=== PATIENT | female | born 1990 | race Caucasian/White ===

== ENCOUNTER 2018-11-20 17:28 | Outpatient (CLI) | payer OTHER ==
[2018-11-20 19:03] LABS: ADD MAN DIFF? NO
[2018-11-20 19:05] LABS: BASOPHILS % 0.3 % (0.0-2.0); EOSINOPHILS # 0.1 10^3/ul (0.0-0.5); EOSINOPHILS % 1.3 % (0.0-7.0); HEMATOCRIT 35.2 % (37.0-47.0); HEMOGLOBIN 12.1 g/dl (12.0-16.0); LYMPHOCYTES # 1.4 10^3/ul (0.8-2.9); MEAN CORPUSCULAR HEMOGLOBIN 31.2 pg (29.0-33.0); MEAN CORPUSCULAR HGB CONC 34.4 g/dl (32.0-37.0); MEAN CORPUSCULAR VOLUME 90.7 fl (82.0-101.0); MEAN PLATELET VOLUME 9.7 fl (7.4-10.4); MONOCYTE # 0.8 10^3/ul (0.3-0.9); MONOCYTES % 7.6 % (0.0-11.0); NEUTROPHIL # 8.1 10^3/ul (1.6-7.5); NEUTROPHILS % 76.9 % (39.0-77.0); PLATELET COUNT 243 10^3/UL (140-415); RED BLOOD COUNT 3.88 10^6/ul (4.20-5.40); RED CELL DISTRIBUTION WIDTH 13.1 % (11.5-14.5)
[2018-11-20 19:05] LABS: WHITE BLOOD COUNT 10.5 10^3/ul (4.8-10.8)
[2018-11-20 19:15] LABS: ADD UMIC NO; UR ASCORBIC ACID NEGATIVE (NEGATIVE); UR BACTERIA FEW /HPF (NONE SEEN); UR BILIRUBIN (Dip) NEGATIVE (NEGATIVE); UR BLOOD (Dip) NEGATIVE (NEGATIVE); UR CLARITY SLIGHTLY CLOUDY (CLEAR); UR COLOR YELLOW (YELLOW); UR GLUCOSE (Dip) NEGATIVE (NEGATIVE); UR KETONES (Dip) NEGATIVE (NEGATIVE); UR LEUKOCYTE ESTERASE (Dip) NEGATIVE Leu/ul (NEGATIVE); UR MUCUS FEW /HPF (NONE SEEN); UR NITRITE (Dip) NEGATIVE (NEGATIVE); UR RBC 0 /HPF (0-5); UR SPECIFIC GRAVITY (Dip) 1.018 (1.003-1.030); UR SQUAMOUS EPITHELIAL CELL FEW /HPF (FEW); UR TOTAL PROTEIN (Dip) NEGATIVE (NEGATIVE); UR UROBILINOGEN (Dip) NEGATIVE (NEGATIVE); UR WBC 2 /HPF (0-5)
[2018-11-20 19:24] LABS: ALANINE AMINOTRANSFERASE 11 IU/L (13-69); ALBUMIN 3.6 g/dl (3.3-4.9); ALBUMIN/GLOBULIN RATIO 1.02; ALKALINE PHOSPHATASE 93 IU/L (42-121); ANION GAP 8 (5-13); ASPARTATE AMINO TRANSFERASE 13 IU/L (15-46); BILIRUBIN,INDIRECT 0.4 mg/dl (0-1.1); BILIRUBIN,TOTAL 0.4 mg/dl (0.2-1.3); BLOOD UREA NITROGEN 9 mg/dl (7-20); CARBON DIOXIDE 24 mmol/L (21-31); CHLORIDE 108 mmol/L (97-110); CREATININE 0.48 mg/dl (0.44-1.00); Estimated GFR > 60 mL/min (>60); GLUCOSE 99 mg/dl (70-220); POTASSIUM 3.8 mmol/L (3.5-5.1); SODIUM 140 mmol/L (135-144); TOTAL PROTEIN 7.1 g/dl (6.1-8.1)
== END 2018-11-20 22:05 | disposition home or self-care (01) ==
LOC: OBT 17:28 → L-D 17:28 → OBT 22:05
DX: O26.853 Spotting complicating pregnancy, third trimester (principal); O13.3 Gestational [pregnancy-induced] hypertension without significant proteinuria, third trimester; Z3A.32 32 weeks gestation of pregnancy
CPT/HCPCS: 76817; 80053; 81001; 81003; 82731; 85025

== ENCOUNTER 2018-12-22 22:19 | Outpatient (CLI) | payer OTHER ==
[2018-12-22 23:26] LABS: ADD UMIC NO; UR ASCORBIC ACID NEGATIVE (NEGATIVE); UR BILIRUBIN (Dip) NEGATIVE (NEGATIVE); UR BLOOD (Dip) NEGATIVE (NEGATIVE); UR CLARITY CLEAR (CLEAR); UR COLOR YELLOW (YELLOW); UR GLUCOSE (Dip) NEGATIVE (NEGATIVE); UR KETONES (Dip) NEGATIVE (NEGATIVE); UR LEUKOCYTE ESTERASE (Dip) NEGATIVE Leu/ul (NEGATIVE); UR NITRITE (Dip) NEGATIVE (NEGATIVE); UR SPECIFIC GRAVITY (Dip) 1.014 (1.003-1.030); UR TOTAL PROTEIN (Dip) NEGATIVE (NEGATIVE); UR UROBILINOGEN (Dip) NEGATIVE (NEGATIVE)
== END 2018-12-23 00:52 | disposition home or self-care (01) ==
LOC: OBT 22:19 → L-D 22:19
DX: O47.1 False labor at or after 37 completed weeks of gestation (principal); Z3A.37 37 weeks gestation of pregnancy
CPT/HCPCS: 76815; 76818; 81003

== ENCOUNTER 2018-12-29 14:01 | Inpatient (IN) | payer OTHER ==
[2018-12-29] MEDS ORDERED: LACTATED RINGER'S 1,000 ML IV (14:43)
[2018-12-29] MEDS ORDERED: OXYTOCIN 30 UNITS/LR 500 ML IV (15:00)
[2018-12-29] MEDS ORDERED: MINERAL OIL LIGHT 10 ML VIAL TOP (15:00)
[2018-12-29] MEDS ORDERED: METHYLERGONOVINE 0.2 MG INJ IM (15:00)
[2018-12-29] MEDS ORDERED: MISOPROSTOL 200 MCG TAB PR (15:00)
[2018-12-29] MEDS ORDERED: CARBOPROST 250 MCG INJ IM (15:00)
[2018-12-29] MEDS ORDERED: BUTORPHANOL 2 MG INJ IV (15:00)
[2018-12-29 15:13] LABS: ADD MAN DIFF? NO
[2018-12-29 15:15] LABS: WHITE BLOOD COUNT 11.3 10^3/ul (4.8-10.8)
[2018-12-29 15:15] LABS: BASOPHILS % 0.2 % (0.0-2.0); EOSINOPHILS # 0.1 10^3/ul (0.0-0.5); EOSINOPHILS % 0.6 % (0.0-7.0); HEMOGLOBIN 12.8 g/dl (12.0-16.0); LYMPHOCYTES % 9.2 % (15.0-51.0); MEAN CORPUSCULAR HEMOGLOBIN 32.4 pg (29.0-33.0); MEAN CORPUSCULAR HGB CONC 36.6 g/dl (32.0-37.0); MEAN CORPUSCULAR VOLUME 88.6 fl (82.0-101.0); MEAN PLATELET VOLUME 10.5 fl (7.4-10.4); MONOCYTE # 0.5 10^3/ul (0.3-0.9); MONOCYTES % 4.8 % (0.0-11.0); NEUTROPHIL # 9.6 10^3/ul (1.6-7.5); NEUTROPHILS % 84.7 % (39.0-77.0); PLATELET COUNT 224 10^3/UL (140-415); RED BLOOD COUNT 3.95 10^6/ul (4.20-5.40); RED CELL DISTRIBUTION WIDTH 13.1 % (11.5-14.5)
[2018-12-29 15:36] LABS: INR 0.89; PROTIME 12.2 Sec (11.9-14.9)
[2018-12-29] MEDS: AMPICILLIN 2 GM/NS (PMX) 100 ML IV (15:36)
[2018-12-29 15:37] LABS: PARTIAL THROMBOPLASTIN TIME 29.6 Sec (23.0-35.0)
[2018-12-29] MEDS: LACTATED RINGER'S 1,000 ML IV (15:37)
[2018-12-29 16:17] LABS: HEPATITIS B SURFACE ANTIGEN NEGATIVE (NEGATIVE)
[2018-12-29] MEDS: OXYTOCIN 30 UNITS/LR 500 ML IV ×3 (16:37→22:38)
[2018-12-29] MEDS: AMPICILLIN 1 GM/NS (PMX) 50 ML IV (19:15)
[2018-12-29] MEDS: LIDOCAINE 1% (MPF) 30 ML INJ INJ (22:24)
[2018-12-29] MEDS: MINERAL OIL LIGHT 10 ML VIAL TOP (22:32)
[2018-12-30] MEDS: IBUPROFEN 600 MG TAB PO ×4 (00:23→17:48)
[2018-12-30] MEDS ORDERED: DIPHENHYDRAMINE 50 MG INJ IV (01:30)
[2018-12-30] MEDS ORDERED: ZOLPIDEM 5 MG TAB PO (01:30)
[2018-12-30] MEDS ORDERED: MAGNESIUM HYDROXIDE 30ML CUP PO (01:30)
[2018-12-30] MEDS ORDERED: CARBOPROST 250 MCG INJ IM (01:30)
[2018-12-30] MEDS ORDERED: DIBUCAINE 1% 30 GM OINT TOP (01:30)
[2018-12-30] MEDS ORDERED: ONDANSETRON 4 MG INJ IV (01:30)
[2018-12-30] MEDS ORDERED: MISOPROSTOL 200 MCG TAB PR (01:30)
[2018-12-30] MEDS ORDERED: METHYLERGONOVINE 0.2 MG INJ IM (01:30)
[2018-12-30] MEDS ORDERED: ACETAMINOPHEN 325 MG TAB PO (01:30)
[2018-12-30] MEDS ORDERED: OXYTOCIN 30 UNITS/LR 500 ML IV (01:30)
[2018-12-30] MEDS ORDERED: OXYCODONE/ASPIRIN (4.88/325) TAB PO (01:30)
[2018-12-30] MEDS: WITCH HAZEL/GLYCERIN PAD PR ×2 (03:47→21:43)
[2018-12-30] MEDS: BENZOCAINE 20% 56 ML SPRAY TOP ×2 (03:47→21:43)
[2018-12-30] MEDS: LANOLIN HPA 1 PKT TOP ×2 (03:47→21:43)
[2018-12-30] MEDS: LACTATED RINGER'S 1,000 ML IV* ×3 (03:48→17:27)
[2018-12-30] MEDS: DEXTROSE 5%-LR 1,000 ML IV ×3 (07:30→17:27)
[2018-12-30 10:24] LABS: ADD MAN DIFF? NO
[2018-12-30 10:31] LABS: BASOPHILS % 0.2 % (0.0-2.0); EOSINOPHILS # 0.1 10^3/ul (0.0-0.5); EOSINOPHILS % 0.6 % (0.0-7.0); HEMATOCRIT 30.3 % (37.0-47.0); HEMOGLOBIN 10.8 g/dl (12.0-16.0); LYMPHOCYTES # 1.1 10^3/ul (0.8-2.9); LYMPHOCYTES % 9.2 % (15.0-51.0); MEAN CORPUSCULAR HGB CONC 35.6 g/dl (32.0-37.0); MEAN CORPUSCULAR VOLUME 89.9 fl (82.0-101.0); MEAN PLATELET VOLUME 10.3 fl (7.4-10.4); MONOCYTE # 0.6 10^3/ul (0.3-0.9); MONOCYTES % 4.7 % (0.0-11.0); NEUTROPHIL # 10.5 10^3/ul (1.6-7.5); NEUTROPHILS % 84.4 % (39.0-77.0); PLATELET COUNT 196 10^3/UL (140-415); RED BLOOD COUNT 3.37 10^6/ul (4.20-5.40); RED CELL DISTRIBUTION WIDTH 13.3 % (11.5-14.5)
[2018-12-30 10:31] LABS: WHITE BLOOD COUNT 12.4 10^3/ul (4.8-10.8)
[2018-12-30] MEDS: SENNA/DOCUSATE NA (8.6MG/50MG) TAB PO (21:43)
[2018-12-30 22:33] LABS: RAPID PLASMA REAGIN NONREACTIVE (NR)
[2018-12-31] MEDS: IBUPROFEN 600 MG TAB PO ×3 (00:31→12:34)
[2018-12-31 07:08] LABS: ADD MAN DIFF? NO
[2018-12-31 07:10] LABS: BASOPHILS % 0.3 % (0.0-2.0); EOSINOPHILS # 0.2 10^3/ul (0.0-0.5); EOSINOPHILS % 1.6 % (0.0-7.0); HEMATOCRIT 32.6 % (37.0-47.0); HEMOGLOBIN 10.9 g/dl (12.0-16.0); LYMPHOCYTES # 1.7 10^3/ul (0.8-2.9); LYMPHOCYTES % 14.2 % (15.0-51.0); MEAN CORPUSCULAR HEMOGLOBIN 31.3 pg (29.0-33.0); MEAN CORPUSCULAR HGB CONC 33.4 g/dl (32.0-37.0); MEAN CORPUSCULAR VOLUME 93.7 fl (82.0-101.0); MONOCYTE # 0.8 10^3/ul (0.3-0.9); MONOCYTES % 6.8 % (0.0-11.0); NEUTROPHIL # 8.9 10^3/ul (1.6-7.5); NEUTROPHILS % 75.5 % (39.0-77.0); PLATELET COUNT 203 10^3/UL (140-415); RED BLOOD COUNT 3.48 10^6/ul (4.20-5.40); RED CELL DISTRIBUTION WIDTH 13.6 % (11.5-14.5)
[2018-12-31 07:10] LABS: WHITE BLOOD COUNT 11.8 10^3/ul (4.8-10.8)
[2019-01-01] MEDS ORDERED: DIPHTH/TET/ACEL PERTUSS (ADULT) 0.5 ML VIAL IM* (09:00)
[2019-01-01] MEDS ORDERED: MEASLES,MUMPS,RUBELLA VACCINE INJ SC* (09:00)
== END 2018-12-31 14:55 | disposition home or self-care (01) | DRG 807 ==
LOC: OBT 14:01 → L-D 14:02 → OBT 14:41 → L-D 14:43 → PP1 22:43
PROVIDERS: Specialist
PROC: 10E0XZZ Delivery of Products of Conception, External Approach (ICD-10-PCS; principal; 2018-12-30)
PROC: 0HQ9XZZ Repair Perineum Skin, External Approach (ICD-10-PCS; 2018-12-30)
DX: O70.0 First degree perineal laceration during delivery (principal); Z37.0 Single live birth; Z3A.38 38 weeks gestation of pregnancy
CPT/HCPCS: 76815; 85025; 85610; 85730; 86592; 86850; 86900; 86901; 87340; 99464